=== PATIENT | male | born 1960 | race Caucasian/White ===

== ENCOUNTER 2017-01-21 19:46 | Emergency (ER) | payer BC, OTHER ==
[~2017-01-21] VITALS: Ht 170.2 cm; Wt 102.8 kg
[~2017-01-21 19:46] MED LIST: CEPH500C PO; EFFSR150 PO; PRLSR20 PO; RANI300T2 PO; [UNRECOGNIZED DRUG - REMARK]
[2017-01-21 19:58] VITALS: TEMP 37.1; Ht 170.2 cm; Wt 102.8 kg
[2017-01-21] MEDS ORDERED: EFFSR150 PO (20:07)
[2017-01-21] MEDS ORDERED: RABIES IMMUNE GLOBULIN (HUMAN) 150 INTER.UNIT/ML 2 ML VIAL IM. ONE (20:30)
[2017-01-21] MEDS ORDERED: RABIES VACCINE (IMOVAX) HUMAN DIPL CELL 2.5 INTER.UNIT/ML SYR IM. ONE (20:30)
--- NOTE | 2017-01-21 20:43 | EMERGENCY ROOM VISIT NOTE ---
ED Visit Note First contact with patient: 20:01 CHIEF COMPLAINT: Need for rabies vaccine HISTORY OF PRESENT ILLNESS: This 56-year-old male patient presents to the emergency department complaining of a possible rabies exposure. The patient states that 2 days ago, he shot a raccoon which attacked his neighbor's dog. He states that he did handle the raccoon afterward and had some open abrasions on his hands. The raccoon tested positive for rabies and the patient was sent here for rabies vaccinations. He has never received any vaccinations in the past. His tetanus status is up-to-date. He denies any complaints at this time. REVIEW OF SYSTEMS: A 6 system review of systems was completed with positives and pertinent negatives listed in the HPI. ALLERGIES: Simvastatin MEDICATIONS: Zantac, Effexor PMH: No significant past medical history.. SOCIAL HISTORY: The patient lives locally with his family. He admits to tobacco use and denies alcohol use. PHYSICAL EXAM: Vital Signs: Reviewed Nurse's notes, vital signs stable. GENERAL : This is a 56-year-old male, in no acute distress, well-developed, well- nourished. HEAD: Atraumatic, without temporal or scalp tenderness. EYES: PERRLA, EOMI, no discharge or injection. SKIN: There are multiple small, scabbed abrasions to bilateral hands. Capillary refill less than 2 seconds. NEUROLOGICAL: Alert and oriented to person place and time. Normal sensation to light and sharp touch. MUSCULOSKELETAL: Motor functions grossly intact throughout. Full range of motion. EMERGENCY DEPARTMENT COURSE: I examined the patient. The patient was given RIG 20 Units/kg. The patient was given Imovax 2.5 units IM. The patient was observed for 20 minutes with no reaction. Follow-up instructions were reviewed with the patient. The patient was discharged home in stable condition. DIAGNOSIS: Rabies prophylaxis Current/Historical Medications Scheduled Ranitidine (Zantac), 300 MG PO HS Venlafaxine Hcl (Effexor Extended Rel), 300 MG PO DAILY Allergies Coded Allergies: Simvastatin (Verified Allergy, Unknown, KARLEE HUFFMAN, 01/21/17) Vital Signs Date Time Temp Pulse Resp B/P Pulse Ox O2 Delivery O2 Flow Rate FiO2 01/21/17 21:27 81 138/89 94 Room Air 01/21/17 19:58 37.1 95 19 170/106 95 Room Air Medications Administered Medications (Trade) Dose Ordered Sig/Mario Route Start Time Stop Time Status Last Admin Dose Admin Rabies Immune Globulin (Imogam Rabies Inj) 2,040 interunit ONCE ONCE IM. 01/21/17 20:30 01/21/17 20:31 DC 01/21/17 20:30 2,040 INTERUNIT Rabies Vaccine Human Diploid Cell (Imovax Rabies) 2.5 interunit ONCE ONCE IM. 01/21/17 20:30 01/21/17 20:31 DC 01/21/17 20:30 2.5 INTERUNIT Departure Information Impression Primary Impression: Rabies exposure Dispostion Home / Self-Care Condition GOOD Referrals Micah Walton D.OCatia (PCP) Patient Instructions My [facility] Additional Instructions Today is day 0. Return to the ER on days 3, 7, and 14 for subsequent vaccinations. You should return on the following days: 01/24/17 01/28/17 02/04/17 Return sooner or follow up with your family doctor for signs of infection ( increased redness, discharge, fever) or for complications with the vaccine series.
[2017-01-21 21:27] VITALS: BP 138/89; PULSE 81; O2SAT 94
== END 2017-01-21 21:39 | disposition home or self-care (01) ==
LOC: C.EDB 19:47 → C.EDD 21:39
DX: Z20.3 Contact with and (suspected) exposure to rabies (principal); F17.210 Nicotine dependence, cigarettes, uncomplicated; Z79.899 Other long term (current) drug therapy

== ENCOUNTER 2017-01-24 10:44 | Emergency (ER) | payer BC ==
[~2017-01-24] VITALS: Ht 170.2 cm; Wt 87.0 kg
[~2017-01-24 10:44] MED LIST changes: -CEPH500C PO; -PRLSR20 PO; -[UNRECOGNIZED DRUG - REMARK]
[2017-01-24 10:54] VITALS: BP 152/76; PULSE 91; TEMP 36.7; O2SAT 96; Ht 170.2 cm; Wt 87.0 kg
[2017-01-24] MEDS ORDERED: RABIES VACCINE (IMOVAX) HUMAN DIPL CELL 2.5 INTER.UNIT/ML SYR IM. ONE (11:15)
--- NOTE | 2017-01-24 11:27 | EMERGENCY ROOM VISIT NOTE ---
ED Visit Note First contact with patient: 11:11 CHIEF COMPLAINT: Rabies prophylaxis HISTORY OF PRESENT ILLNESS: This 56-year-old male patient presents to the emergency department ambulatory for their second rabies shot. The patient has not had any complications from the previous injections. They deny any other complaints. REVIEW OF SYSTEMS: A 6 system review of systems was completed with positives and pertinent negatives listed in the HPI. ALLERGIES: Simvastatin MEDICATIONS: Unchanged from previous PMH: Unchanged from previous visit. PHYSICAL EXAM: Vital Signs: Reviewed Nurse's notes, vital signs stable. GENERAL : This is a 56-year-old male, in no acute distress, well-developed, well- nourished. HEAD: Atraumatic, without temporal or scalp tenderness. EYES: PERRLA, EOMI, no discharge or injection. SKIN: Normal. NEUROLOGICAL: Alert and cooperative. Sensory and motor functions grossly intact. EMERGENCY DEPARTMENT COURSE: I examined the patient. The patient was given Imovax 1ml IM. The patient was observed for 20 minutes with no reaction. The patient was discharged home in stable condition. DIAGNOSIS: Rabies prophylaxis DISCHARGE INSTRUCTIONS: Continue vaccination schedule as directed. Return for any complications. Current/Historical Medications Scheduled Ranitidine (Zantac), 300 MG PO HS Venlafaxine Hcl (Effexor Extended Rel), 300 MG PO DAILY Allergies Coded Allergies: Simvastatin (Verified Allergy, Unknown, JONHOR NATHANAEL, 01/21/17) Vital Signs Date Time Temp Pulse Resp B/P Pulse Ox O2 Delivery O2 Flow Rate FiO2 01/24/17 10:54 36.7 91 18 152/76 96 Room Air Medications Administered Medications (Trade) Dose Ordered Sig/Mario Route Start Time Stop Time Status Last Admin Dose Admin Rabies Vaccine Human Diploid Cell (Imovax Rabies) 2.5 interunit ONCE ONCE IM. 01/24/17 11:15 01/24/17 11:16 DC 01/24/17 11:36 2.5 INTERUNIT Departure Information Impression Primary Impression: Rabies exposure Additional Impression: Rabies, need for prophylactic vaccination against Dispostion Home / Self-Care Condition GOOD Referrals Micah Walton D.OCatia (PCP) Patient Instructions My [facility] Additional Instructions Continue vaccination schedule as directed. Return for any complications. Problem Qualifiers
== END 2017-01-24 11:42 | disposition home or self-care (01) ==
LOC: C.EDB 10:45 → C.EDD 11:42
DX: Z20.3 Contact with and (suspected) exposure to rabies (principal); Z23 Encounter for immunization

== ENCOUNTER 2017-01-28 09:58 | Emergency (ER) | payer BC ==
[~2017-01-28] VITALS: Ht 170.2 cm; Wt 98.3 kg
[2017-01-28 10:01] VITALS: TEMP 36.7; Ht 170.2 cm; Wt 98.3 kg
[2017-01-28] MEDS ORDERED: RABIES VACCINE (IMOVAX) HUMAN DIPL CELL 2.5 INTER.UNIT/ML SYR IM. ONE (10:30)
--- NOTE | 2017-01-28 10:32 | EMERGENCY ROOM VISIT NOTE ---
ED Visit Note First contact with patient: 10:25 CHIEF COMPLAINT: Need third rabies vaccine HISTORY OF PRESENT ILLNESS: This 56-year-old male presents the ER for his third rabies vaccine. The patient handled a rabid raccoon but was not bitten. He did have some abrasions on his hands. The patient has tolerated the prior vaccines without any difficulty. REVIEW OF SYSTEMS: 3 system review was performed and was negative unless stated otherwise in history of present illness. PMH: The patient is healthy; anxiety, GERD SOCIAL HISTORY: Patient denies any tobacco or alcohol use PHYSICAL EXAM: Vital Signs: Were reviewed Reviewed Nurse's notes. GENERAL: 56- year-old white male appears in no acute distress. MENTAL Status: Alert and oriented 3. EMERGENCY DEPARTMENT COURSE: The patient was given Imovax IM. The patient was discharged home in stable condition. DIAGNOSIS: Post exposure rabies prophylaxis DISCHARGE INSTRUCTIONS: Return to the ER in 7 days for final rabies vaccine. Current/Historical Medications Scheduled Ranitidine (Zantac), 300 MG PO HS Venlafaxine Hcl (Effexor Extended Rel), 300 MG PO DAILY Allergies Coded Allergies: Simvastatin (Verified Allergy, Unknown, CRESTOR [place], 01/21/17) Vital Signs Date Time Temp Pulse Resp B/P Pulse Ox O2 Delivery O2 Flow Rate FiO2 01/28/17 10:01 36.7 84 18 137/83 100 Room Air Departure Information Referrals Micah Walton D.OCatia (PCP) Patient Instructions My [facility]
[2017-01-28 10:43] VITALS: BP 121/82; PULSE 79; O2SAT 97
== END 2017-01-28 10:46 | disposition home or self-care (01) ==
LOC: C.EDB 10:00
DX: Z20.3 Contact with and (suspected) exposure to rabies (principal); Z23 Encounter for immunization; F41.9 Anxiety disorder, unspecified; K21.9 Gastro-esophageal reflux disease without esophagitis; Z79.899 Other long term (current) drug therapy

== ENCOUNTER 2017-02-04 12:07 | Emergency (ER) | payer BC ==
[~2017-02-04] VITALS: Ht 170.2 cm; Wt 103.1 kg
[2017-02-04 12:11] VITALS: TEMP 36.8; Ht 170.2 cm; Wt 103.1 kg
[2017-02-04] MEDS ORDERED: RABIES VACCINE (IMOVAX) HUMAN DIPL CELL 2.5 INTER.UNIT/ML SYR IM. ONE (12:30)
--- NOTE | 2017-02-04 12:30 | EMERGENCY ROOM VISIT NOTE ---
ED Visit Note First contact with patient: 12:26 CHIEF COMPLAINT: Rabies prophylaxis HISTORY OF PRESENT ILLNESS: This 56-year-old male patient presents to the emergency department ambulatory for their last rabies shot. The patient has not had any complications from the previous injections. They deny any other complaints. REVIEW OF SYSTEMS: A 6 system review of systems was completed with positives and pertinent negatives listed in the HPI. ALLERGIES: Simvastatin MEDICATIONS: Unchanged and previous PMH: Unchanged from previous visit. PHYSICAL EXAM: Vital Signs: Reviewed Nurse's notes, vital signs stable. GENERAL : This is a 56-year-old male, in no acute distress, well-developed, well- nourished. HEAD: Atraumatic, without temporal or scalp tenderness. EYES: PERRLA, EOMI, no discharge or injection. SKIN: Normal. NEUROLOGICAL: Alert and cooperative. Sensory and motor functions grossly intact. EMERGENCY DEPARTMENT COURSE: I examined the patient. The patient was given Imovax 1ml IM. The patient was observed for 20 minutes with no reaction. The patient was discharged home in stable condition. DIAGNOSIS: Rabies prophylaxis DISCHARGE INSTRUCTIONS: Continue vaccination schedule as directed. Return for any complications. Current/Historical Medications Scheduled Ranitidine (Zantac), 300 MG PO HS Venlafaxine Hcl (Effexor Extended Rel), 300 MG PO DAILY Allergies Coded Allergies: Simvastatin (Verified Allergy, Unknown, JONHOR NATHANAEL, 02/04/17) Vital Signs Date Time Temp Pulse Resp B/P Pulse Ox O2 Delivery O2 Flow Rate FiO2 02/04/17 12:40 76 16 142/89 95 Room Air 02/04/17 12:11 36.8 94 18 148/96 93 Room Air Medications Administered Medications (Trade) Dose Ordered Sig/Mario Route Start Time Stop Time Status Last Admin Dose Admin Rabies Vaccine Human Diploid Cell (Imovax Rabies) 2.5 interunit ONCE ONCE IM. 02/04/17 12:30 02/04/17 12:31 DC 02/04/17 12:37 2.5 INTERUNIT Departure Information Impression Primary Impression: Rabies, need for prophylactic vaccination against Dispostion Home / Self-Care Condition GOOD Referrals Micah Walton D.O. (PCP) Patient Instructions My [facility] Additional Instructions Continue vaccination schedule as directed. Return for any complications.
[2017-02-04 12:40] VITALS: BP 142/89; PULSE 76; O2SAT 95
== END 2017-02-04 12:49 | disposition home or self-care (01) ==
LOC: C.EDB 12:08 → C.EDD 12:49
DX: Z23 Encounter for immunization (principal); Z20.3 Contact with and (suspected) exposure to rabies